=== PATIENT | male | born 1960 | race Caucasian/White ===

== ENCOUNTER 2016-05-25 09:45 | Inpatient (IN) | payer MEDICARE ==
[~2016-05-25] VITALS: Ht 190.5 cm; Wt 255.0 kg
[~2016-05-25 09:45] MED LIST: ACET-1757 PO; ALBU18HF INH; ALBU2.5V11 NEB; AMIO100T4 PO; AMIO200T42 PO; BISA10SU65 PR; CEFT1FRO2 IV; CEPH-367 PO; CEPH-376 PO; DOCU-30 PO; ENOX100S4 SQ; ENOX150D3 SQ; FENT1PAT77 TD; FURO-92 PO; FURO20TA3 IVPush; FURO80TA3 PO; HEPA IV; HYDR-3144 PO; HYDR-3240 PO; HYDR4CRE5 TP; HYDR4TAB16 PO; LISI-167 PO; LORA4VIA4 PO; MECL-85 PO; METH500T97 PO; METH750T2 PO; METO25TA35 PO; METO50TA4 PO; METO5TAB5 PO; MORP30TA3 PO; MORP30TA81 PO; MORP4VIA IVPush; NYST1POW2 TP; NYST60PO TP; ONDA4AMP IVPush; POLY17PO5 NG; POLY17PO5 PO; POTA20TA14 PO; POTA25TA3 PO; POTA25TA4 PO; RIVA15TA PO; SENN1TAB7 PO; SIMV20TA3 PO; SULF1TAB24 PO; TRAZ150T68 PO; TRAZ300T2 PO; WARF10TA6 PO-COUM; WARF5TAB7 PO-COUM
[2016-05-25] MEDS ORDERED: FUROSEMIDE 20 MG TABLET PO ONE (10:00)
[2016-05-25 10:44] LABS: HEMOGLOBIN 11.4 g/dL (13.7-18.0)
[2016-05-25 10:45] LABS: BLOOD UREA NITROGEN 27 mg/dL (7-18)
[2016-05-25 10:55] LABS: IS PT STATUS REG ER OR PRE ER? YES
[2016-05-25] MEDS ORDERED: RIVA20TA PO (10:59)
[2016-05-25] MEDS ORDERED: ZOLP10TA PO (10:59)
[2016-05-25] MEDS ORDERED: LABETALOL 5MG/ML, 20ML IV PRN (12:30)
[2016-05-25] MEDS ORDERED: FENTANYL 50 MCG PATCH TD SCH (12:30)
[2016-05-25 12:58] LABS: IS PT STATUS REG ER OR PRE ER? YES
[2016-05-25 13:28] VITALS: BP 119/68
[2016-05-25] MEDS: PLEASE ENTER WEIGHT MC SCH ×2 (13:30→21:30)
[2016-05-25] MEDS: HYDROcodone/APAP 5/325 TABLET PO PRN ×2 (16:53→23:03)
[2016-05-25] MEDS: FUROSEMIDE 40 MG/4 ML IV SCH (16:53)
[2016-05-25] MEDS: METOLAZONE 5 MG TABLET PO SCH (16:53)
[2016-05-25 18:56] LABS: IS PT STATUS REG ER OR PRE ER? NO
[2016-05-25 20:05] VITALS: BP 111/69
[2016-05-25] MEDS: FAMOTIDINE 20 MG/2 ML IV SCH (20:41)
[2016-05-25] MEDS: METOPROLOL SUCCINATE 50 MG TAB.ER.24H PO SCH (20:42)
[2016-05-25] MEDS: AMIODARONE 200 MG TABLET PO SCH (20:42)
[2016-05-25] MEDS: ZOLPIDEM 10MG TABLET PO SCH (23:03)
[2016-05-25] MEDS: TRAZODONE 100MG TABLET PO PRN (23:03)
[2016-05-26 05:22] VITALS: BP 115/69
[2016-05-26] MEDS: PLEASE ENTER WEIGHT MC SCH ×2 (05:30→11:21)
[2016-05-26 05:44] LABS: BLOOD UREA NITROGEN 19 mg/dL (7-18)
[2016-05-26 05:47] LABS: ASPARTATE AMINO TRANSFERASE 12 U/L (15-37); TOTAL IRON BINDING CAPACITY 335 mcg/dL (250-450)
[2016-05-26 07:27] VITALS: BP 118/74
[2016-05-26] MEDS: METOLAZONE 5 MG TABLET PO SCH (08:07)
[2016-05-26] MEDS: METOPROLOL SUCCINATE 50 MG TAB.ER.24H PO SCH ×2 (08:07→21:24)
[2016-05-26] MEDS: HYDROcodone/APAP 5/325 TABLET PO PRN ×3 (08:07→21:24)
[2016-05-26] MEDS: AMIODARONE 200 MG TABLET PO SCH ×2 (08:08→21:24)
[2016-05-26] MEDS: FUROSEMIDE 40 MG/4 ML IV SCH ×2 (08:08→17:11)
[2016-05-26] MEDS: FAMOTIDINE 20 MG/2 ML IV SCH ×2 (08:08→21:24)
[2016-05-26] MEDS ORDERED: RIVAROXABAN 20 MG TABLET PO SCH (09:00)
[2016-05-26 09:07] LABS: HEMOGLOBIN 10.7 g/dL (13.7-18.0)
[2016-05-26 12:50] VITALS: BP 111/64
[2016-05-26] MEDS: POLYETHYLENE GLYCOL 17 GM PACKET PO PRN (14:45)
[2016-05-26] MEDS: DOCUSATE 100 MG CAPSULE PO PRN (14:45)
[2016-05-26] MEDS: RIVAROXABAN 20 MG TABLET PO SCH (17:12)
[2016-05-26 19:35] VITALS: BP 115/63
[2016-05-26] MEDS: ZOLPIDEM 10MG TABLET PO SCH (21:24)
[2016-05-26] MEDS: TRAZODONE 100MG TABLET PO PRN (22:13)
[2016-05-27 03:58] VITALS: BP 135/74
[2016-05-27] MEDS: HYDROcodone/APAP 5/325 TABLET PO PRN ×4 (04:10→22:58)
[2016-05-27 06:04] LABS: BLOOD UREA NITROGEN 22 mg/dL (7-18)
[2016-05-27 07:50] VITALS: BP 116/69
[2016-05-27] MEDS: POLYETHYLENE GLYCOL 17 GM PACKET PO PRN (08:42)
[2016-05-27] MEDS: METOPROLOL SUCCINATE 50 MG TAB.ER.24H PO SCH ×2 (08:42→20:43)
[2016-05-27] MEDS: METOLAZONE 5 MG TABLET PO SCH (08:42)
[2016-05-27] MEDS: AMIODARONE 200 MG TABLET PO SCH ×2 (08:42→20:43)
[2016-05-27] MEDS: DOCUSATE 100 MG CAPSULE PO PRN (08:42)
[2016-05-27] MEDS: FUROSEMIDE 40 MG/4 ML IV SCH (08:43)
[2016-05-27] MEDS: FAMOTIDINE 20 MG/2 ML IV SCH (08:43)
[2016-05-27] MEDS: POTASSIUM CHLORIDE 20 MEQ TAB.ER.PRT PO SCH ×2 (10:37→14:58)
[2016-05-27 12:41] VITALS: BP 138/81
[2016-05-27] MEDS ORDERED: MORPHINE SULFATE 4 MG/ML, 1ML IVPush ONE (15:30)
[2016-05-27] MEDS: ONDANSETRON 2MG/ML, 2ML IVP PRN (16:03)
[2016-05-27] MEDS: RIVAROXABAN 20 MG TABLET PO SCH (16:51)
[2016-05-27] MEDS: FUROSEMIDE 40 MG TABLET PO SCH (16:51)
[2016-05-27 18:58] VITALS: BP 147/69
[2016-05-27] MEDS ORDERED: FENTANYL 50 MCG PATCH TD SCH (20:00)
[2016-05-27] MEDS ORDERED: FENTANYL REMOVE PATCH NOTE XX SCH (20:00)
[2016-05-27] MEDS: ZOLPIDEM 10MG TABLET PO SCH (20:42)
[2016-05-27] MEDS: TRAZODONE 100MG TABLET PO PRN (20:43)
[2016-05-27] MEDS: FAMOTIDINE 20 MG TABLET PO SCH (20:43)
[2016-05-28 04:24] VITALS: BP 117/71
[2016-05-28] MEDS: HYDROcodone/APAP 5/325 TABLET PO PRN ×4 (04:56→23:19)
[2016-05-28 06:10] LABS: HEMOGLOBIN 11.7 g/dL (13.7-18.0)
[2016-05-28 06:22] LABS: BLOOD UREA NITROGEN 23 mg/dL (7-18)
[2016-05-28] MEDS: FUROSEMIDE 40 MG TABLET PO SCH ×2 (09:42→17:28)
[2016-05-28] MEDS: AMIODARONE 200 MG TABLET PO SCH ×2 (09:43→21:19)
[2016-05-28] MEDS: METOPROLOL SUCCINATE 50 MG TAB.ER.24H PO SCH ×2 (09:43→21:18)
[2016-05-28] MEDS: FAMOTIDINE 20 MG TABLET PO SCH ×2 (09:44→21:18)
[2016-05-28] MEDS: METOLAZONE 5 MG TABLET PO SCH (09:45)
[2016-05-28] MEDS: FENTANYL 75 MCG PATCH TD SCH (13:06)
[2016-05-28 13:34] VITALS: BP 142/67
[2016-05-28] MEDS: MORPHINE SULFATE 4 MG/ML, 1ML IVPush PRN ×2 (13:43→23:09)
[2016-05-28] MEDS: RIVAROXABAN 20 MG TABLET PO SCH (17:28)
[2016-05-28 20:26] VITALS: BP 113/66
[2016-05-28] MEDS: POLYETHYLENE GLYCOL 17 GM PACKET PO PRN (21:18)
[2016-05-28] MEDS: ZOLPIDEM 10MG TABLET PO SCH (21:18)
[2016-05-28] MEDS: DOCUSATE 100 MG CAPSULE PO PRN (21:18)
[2016-05-28] MEDS: TRAZODONE 100MG TABLET PO PRN (21:41)
[2016-05-28] MEDS: ONDANSETRON ODT 4 MG PO PRN (23:18)
[2016-05-29 01:02] VITALS: BP 121/63
[2016-05-29] MEDS: HYDROcodone/APAP 5/325 TABLET PO PRN ×3 (07:38→20:44)
[2016-05-29] MEDS: FUROSEMIDE 40 MG TABLET PO SCH ×2 (07:39→18:01)
[2016-05-29 08:12] VITALS: BP 135/76
[2016-05-29] MEDS: FAMOTIDINE 20 MG TABLET PO SCH ×2 (10:04→20:44)
[2016-05-29] MEDS: METOLAZONE 5 MG TABLET PO SCH (10:04)
[2016-05-29] MEDS: METOPROLOL SUCCINATE 50 MG TAB.ER.24H PO SCH ×2 (10:04→20:44)
[2016-05-29] MEDS: AMIODARONE 200 MG TABLET PO SCH ×2 (10:05→20:44)
[2016-05-29] MEDS: MORPHINE SULFATE 4 MG/ML, 1ML IVPush PRN ×2 (11:23→21:50)
[2016-05-29] MEDS: DOCUSATE 100 MG CAPSULE PO PRN (12:37)
[2016-05-29] MEDS: ONDANSETRON ODT 4 MG PO PRN (12:37)
[2016-05-29 13:01] VITALS: BP 167/72
[2016-05-29] MEDS: RIVAROXABAN 20 MG TABLET PO SCH (18:02)
[2016-05-29] MEDS: POLYETHYLENE GLYCOL 17 GM PACKET PO PRN (20:43)
[2016-05-29 21:31] VITALS: BP 110/65
[2016-05-29] MEDS: TRAZODONE 100MG TABLET PO PRN (21:50)
[2016-05-29] MEDS: ZOLPIDEM 10MG TABLET PO SCH (21:50)
[2016-05-29] MEDS: ONDANSETRON 2MG/ML, 2ML IVP PRN (21:56)
[2016-05-30 01:22] VITALS: BP 115/70
[2016-05-30 05:03] LABS: HEMOGLOBIN 11.9 g/dL (13.7-18.0)
[2016-05-30 05:10] LABS: BLOOD UREA NITROGEN 26 mg/dL (7-18)
[2016-05-30 06:53] VITALS: BP 109/70
[2016-05-30] MEDS ORDERED: morphine SULFATE 10 MG/ML, 1ML ONE (08:58)
[2016-05-30] MEDS: ONDANSETRON 2MG/ML, 2ML IVP PRN ×2 (09:03→18:04)
[2016-05-30] MEDS: DOCUSATE 100 MG CAPSULE PO PRN (09:03)
[2016-05-30] MEDS: POLYETHYLENE GLYCOL 17 GM PACKET PO PRN (09:03)
[2016-05-30] MEDS: POTASSIUM CHLORIDE 20 MEQ TAB.ER.PRT PO SCH ×2 (09:04→13:25)
[2016-05-30] MEDS: MORPHINE SULFATE 4 MG/ML, 1ML IVPush PRN ×2 (09:04→18:04)
[2016-05-30] MEDS: FAMOTIDINE 20 MG TABLET PO SCH ×2 (09:05→21:17)
[2016-05-30] MEDS: METOLAZONE 5 MG TABLET PO SCH (09:05)
[2016-05-30] MEDS: METOPROLOL SUCCINATE 50 MG TAB.ER.24H PO SCH ×2 (09:05→21:17)
[2016-05-30] MEDS: AMIODARONE 200 MG TABLET PO SCH ×2 (09:05→21:17)
[2016-05-30] MEDS: HYDROcodone/APAP 5/325 TABLET PO PRN ×3 (09:58→22:56)
[2016-05-30 12:45] VITALS: BP 130/73
[2016-05-30 13:50] LABS: OCCBLD OBC PASS
[2016-05-30] MEDS: FUROSEMIDE 20 MG TABLET PO SCH (16:45)
[2016-05-30] MEDS: RIVAROXABAN 20 MG TABLET PO SCH ×2 (16:45→18:04)
[2016-05-30 19:22] VITALS: BP 124/69
[2016-05-30] MEDS: ZOLPIDEM 10MG TABLET PO SCH (22:56)
[2016-05-30] MEDS: TRAZODONE 100MG TABLET PO PRN (22:56)
[2016-05-31] MEDS: MORPHINE SULFATE 4 MG/ML, 1ML IVPush PRN ×3 (00:35→21:02)
[2016-05-31] MEDS: ONDANSETRON 2MG/ML, 2ML IVP PRN ×3 (00:35→21:02)
[2016-05-31 00:50] VITALS: BP 105/68
[2016-05-31] MEDS: HYDROcodone/APAP 5/325 TABLET PO PRN ×3 (05:07→18:08)
[2016-05-31 05:36] LABS: HEMOGLOBIN 11.9 g/dL (13.7-18.0)
[2016-05-31 05:47] LABS: BLOOD UREA NITROGEN 29 mg/dL (7-18)
[2016-05-31 06:44] VITALS: BP 130/77
[2016-05-31] MEDS: AMIODARONE 200 MG TABLET PO SCH ×2 (08:09→21:02)
[2016-05-31] MEDS: FUROSEMIDE 20 MG TABLET PO SCH ×2 (08:09→18:08)
[2016-05-31] MEDS: FAMOTIDINE 20 MG TABLET PO SCH ×2 (08:10→21:02)
[2016-05-31] MEDS: METOLAZONE 5 MG TABLET PO SCH (08:11)
[2016-05-31] MEDS: METOPROLOL SUCCINATE 50 MG TAB.ER.24H PO SCH ×2 (08:11→21:02)
[2016-05-31] MEDS: POLYETHYLENE GLYCOL 17 GM PACKET PO PRN (08:14)
[2016-05-31] MEDS: DOCUSATE 100 MG CAPSULE PO PRN (08:14)
[2016-05-31 09:27] LABS: TOTAL IRON BINDING CAPACITY 351 mcg/dL (250-450)
[2016-05-31] MEDS ORDERED: POTASSIUM CHLORIDE 20 MEQ TAB.ER.PRT PO ONE (09:30)
[2016-05-31 12:25] VITALS: BP 128/74
[2016-05-31] MEDS ORDERED: FENTANYL REMOVE PATCH NOTE XX SCH (13:00)
[2016-05-31] MEDS: FENTANYL 75 MCG PATCH TD SCH (14:34)
[2016-05-31] MEDS: RIVAROXABAN 20 MG TABLET PO SCH (18:08)
[2016-05-31 19:25] VITALS: BP 129/78
[2016-05-31] MEDS: ZOLPIDEM 10MG TABLET PO SCH (21:01)
[2016-05-31] MEDS: TRAZODONE 100MG TABLET PO PRN (22:06)
[2016-06-01] MEDS: HYDROcodone/APAP 5/325 TABLET PO PRN ×4 (00:11→18:33)
[2016-06-01 02:15] VITALS: BP 127/75
[2016-06-01 05:21] LABS: BLOOD UREA NITROGEN 30 mg/dL (7-18)
[2016-06-01] MEDS ORDERED: POTASSIUM CHLORIDE 20 MEQ TAB.ER.PRT PO ONE (07:00)
[2016-06-01 07:38] VITALS: BP 104/59
[2016-06-01] MEDS: FAMOTIDINE 20 MG TABLET PO SCH ×2 (09:08→20:53)
[2016-06-01] MEDS: DOCUSATE 100 MG CAPSULE PO PRN (09:08)
[2016-06-01] MEDS: AMIODARONE 200 MG TABLET PO SCH ×2 (09:08→20:52)
[2016-06-01] MEDS: FUROSEMIDE 20 MG TABLET PO SCH ×2 (09:09→17:10)
[2016-06-01] MEDS: METOLAZONE 5 MG TABLET PO SCH (09:09)
[2016-06-01] MEDS: METOPROLOL SUCCINATE 50 MG TAB.ER.24H PO SCH ×2 (09:09→20:53)
[2016-06-01] MEDS: POLYETHYLENE GLYCOL 17 GM PACKET PO PRN (09:10)
[2016-06-01] MEDS: MORPHINE SULFATE 4 MG/ML, 1ML IVPush PRN ×3 (10:57→23:16)
[2016-06-01] MEDS: ONDANSETRON 2MG/ML, 2ML IVP PRN ×3 (10:57→23:19)
[2016-06-01 12:36] VITALS: BP 127/70
[2016-06-01] MEDS: RIVAROXABAN 20 MG TABLET PO SCH (17:10)
[2016-06-01 19:41] VITALS: BP 133/73
[2016-06-01] MEDS: ZOLPIDEM 10MG TABLET PO SCH (20:52)
[2016-06-01] MEDS: TRAZODONE 100MG TABLET PO PRN (21:59)
[2016-06-02] MEDS: HYDROcodone/APAP 5/325 TABLET PO PRN ×3 (00:36→12:45)
[2016-06-02 01:47] VITALS: BP 120/74
[2016-06-02 07:48] VITALS: BP 117/65
[2016-06-02] MEDS: FAMOTIDINE 20 MG TABLET PO SCH (08:50)
[2016-06-02] MEDS: DOCUSATE 100 MG CAPSULE PO PRN (08:51)
[2016-06-02] MEDS: AMIODARONE 200 MG TABLET PO SCH (08:51)
[2016-06-02] MEDS: FUROSEMIDE 20 MG TABLET PO SCH (08:51)
[2016-06-02] MEDS: METOLAZONE 5 MG TABLET PO SCH (08:51)
[2016-06-02] MEDS: METOPROLOL SUCCINATE 50 MG TAB.ER.24H PO SCH (08:51)
[2016-06-02] MEDS ORDERED: POTASSIUM CHLORIDE 20 MEQ TAB.ER.PRT PO SCH (10:30)
[2016-06-02] MEDS: MORPHINE SULFATE 4 MG/ML, 1ML IVPush PRN (10:39)
[2016-06-02] MEDS: ONDANSETRON 2MG/ML, 2ML IVP PRN (10:39)
[2016-06-02 12:48] VITALS: BP 132/74
[2016-06-02] MEDS ORDERED: POTA20TA14 PO (15:41)
[2016-06-02] MEDS ORDERED: AMIO200T42 PO (15:41)
[2016-06-02] MEDS ORDERED: FURO20TA3 PO (15:41)
[2016-06-03] MEDS ORDERED: AMIODARONE 200 MG TABLET PO SCH (09:00)
== END 2016-06-02 16:30 | disposition home or self-care (01) | DRG 291 ==
LOC: ED 10:43 → EDIP 11:36 → 4WST 13:08
PROVIDERS: ADMIT Internal Medicine; ATTEND Internal Medicine
DX: I50.31 Acute diastolic (congestive) heart failure (principal); J96.21 Acute and chronic respiratory failure with hypoxia; J96.22 Acute and chronic respiratory failure with hypercapnia; D68.69 Other thrombophilia; E66.2 Morbid (severe) obesity with alveolar hypoventilation; Z68.45 Body mass index [BMI] 70 or greater, adult; G89.29 Other chronic pain; I48.2 Chronic atrial fibrillation; D50.9 Iron deficiency anemia, unspecified; I27.2 Other secondary pulmonary hypertension; I27.81 Cor pulmonale (chronic); I87.8 Other specified disorders of veins; J44.9 Chronic obstructive pulmonary disease, unspecified; Z79.01 Long term (current) use of anticoagulants; Z86.711 Personal history of pulmonary embolism; Z86.718 Personal history of other venous thrombosis and embolism; Z87.440 Personal history of urinary (tract) infections; Z87.891 Personal history of nicotine dependence; Z98.84 Bariatric surgery status; Z99.81 Dependence on supplemental oxygen; Z90.49 Acquired absence of other specified parts of digestive tract; Z88.8 Allergy status to other drugs, medicaments and biological substances; Z88.5 Allergy status to narcotic agent
CPT/HCPCS: 36415; 71010; 80048; 80053; 81001; 82040; 82272; 82728; 82962; 83540; 83550; 83735; 83880; 84439; 84443; 84484; 85025; 85379; 87040; 87086; 87252; 93005; 93922; 99285; C8929; J1940; J2405; Q0162; S0028

== ENCOUNTER 2016-07-05 10:18 | Emergency (ER) | payer MEDICARE ==
[~2016-07-05] VITALS: Ht 193 cm; Wt 251.5 kg
[~2016-07-05 10:18] MED LIST changes: +FURO20TA3 PO; +RIVA20TA PO; +ZOLP10TA PO
[2016-07-05] MEDS ORDERED: POLY17PO5 PO (10:50)
[2016-07-05] MEDS ORDERED: ZOLP-413 PO (10:50)
[2016-07-05] MEDS ORDERED: DOCU100C8 PO (10:51)
[2016-07-05] MEDS ORDERED: SODIUM CHLORIDE FLUSH 10ML SYR IVF ONE (11:30)
[2016-07-05] MEDS ORDERED: FUROSEMIDE 40 MG/4 ML IVPush ONE (11:30)
[2016-07-05] MEDS ORDERED: MORPHINE SULFATE 4 MG/ML, 1ML ONE (12:14)
[2016-07-05 12:20] LABS: ASPARTATE AMINO TRANSFERASE 7 U/L (15-37); BLOOD UREA NITROGEN 19 mg/dL (7-18)
[2016-07-05 12:25] LABS: IS PT STATUS REG ER OR PRE ER? YES
[2016-07-05] MEDS ORDERED: ONDANSETRON 2MG/ML, 2ML ONE (12:27)
[2016-07-05] MEDS ORDERED: MORPHINE SULFATE 4 MG/ML, 1ML IVPush PRN (12:30)
[2016-07-05] MEDS ORDERED: ONDANSETRON 2MG/ML, 2ML IVPush ONE (12:30)
[2016-07-05] MEDS ORDERED: FUROSEMIDE 40 MG/4 ML ONE (12:57)
[2016-07-05 13:01] VITALS: BP 126/98
== END 2016-07-05 16:52 | disposition home or self-care (01) ==
LOC: ED 11:04
DX: R06.00 Dyspnea, unspecified (principal); G89.29 Other chronic pain; M25.562 Pain in left knee; M25.561 Pain in right knee; E66.01 Morbid (severe) obesity due to excess calories; Z99.81 Dependence on supplemental oxygen; Z68.41 Body mass index [BMI] 40.0-44.9, adult
CPT/HCPCS: 36415; 71010; 80053; 83880; 84484; 85025; 85610; 85730; 93005; 96374; 96375; 99285; J1940; J2405

== ENCOUNTER 2016-08-03 13:38 | Emergency (ER) | payer MEDICARE ==
[~2016-08-03] VITALS: Ht 193 cm; Wt 295.0 kg
[~2016-08-03 13:38] MED LIST changes: +DOCU100C8 PO; +ZOLP-413 PO
[2016-08-03] MEDS ORDERED: SODIUM CHLORIDE FLUSH 10ML SYR IVF ONE (14:00)
[2016-08-03] MEDS ORDERED: ONDANSETRON 2MG/ML, 2ML IVPush ONE (14:00)
[2016-08-03] MEDS ORDERED: PLEASE ENTER HEIGHT AND WEIGHT MC SCH (14:30)
[2016-08-03] MEDS ORDERED: ONDANSETRON 2MG/ML, 2ML ONE (14:36)
[2016-08-03] MEDS ORDERED: HYDROmorphone 1 MG/ML, 1ML ONE ×2 (14:36→15:32)
[2016-08-03] MEDS: HYDROmorphone 1 MG/ML, 1ML IVPush PRN ×2 (14:42→15:35)
[2016-08-03 14:54] LABS: BLOOD UREA NITROGEN 21 mg/dL (7-18)
[2016-08-03] MEDS ORDERED: NALOXONE 0.4 MG/ML, 1ML ONE (16:10)
[2016-08-03] MEDS ORDERED: NALOXONE 0.4 MG/ML, 1ML IVPush ONE (16:30)
[2016-08-03 17:28] VITALS: BP 132/87
== END 2016-08-03 18:03 | disposition home or self-care (01) ==
LOC: ED 14:35
DX: S33.5XXA Sprain of ligaments of lumbar spine, initial encounter (principal); M25.562 Pain in left knee; M25.561 Pain in right knee; M25.572 Pain in left ankle and joints of left foot; M25.571 Pain in right ankle and joints of right foot; E66.01 Morbid (severe) obesity due to excess calories; J44.9 Chronic obstructive pulmonary disease, unspecified; Z87.891 Personal history of nicotine dependence; W01.0XXA Fall on same level from slipping, tripping and stumbling without subsequent striking against object, initial encounter; Y93.89 Activity, other specified; Y99.8 Other external cause status; Y92.002 Bathroom of unspecified non-institutional (private) residence as the place of occurrence of the external cause
CPT/HCPCS: 36415; 73560; 73600; 80048; 80307; 82040; 85025; 96374; 96375; 96376; 99285; J1170; J2310; J2405

== ENCOUNTER 2016-12-10 10:17 | Inpatient (IN) | payer MEDICARE ==
[~2016-12-10] VITALS: Ht 193 cm; Wt 293.9 kg
[~2016-12-10 10:17] MED LIST changes: +DOCU-131 PO; -DOCU-30 PO; +DOCU100C33 PO; -DOCU100C8 PO; -ENOX150D3 SQ; +ENOX150S4 SQ; -HYDR-3144 PO; +HYDR-3245 PO; -HYDR4TAB16 PO; +HYDR4TAB48 PO; +TRAZ150T62 PO; -TRAZ150T68 PO
[2016-12-10] MEDS ORDERED: ENALAPRILAT 1.25 MG/ML, 2ML IVPush PRN (14:30)
[2016-12-10] MEDS: PLEASE ENTER HEIGHT AND WEIGHT MC SCH ×2 (15:00→23:00)
[2016-12-10] MEDS ORDERED: ZOLPIDEM 5MG TABLET PO PRN (15:00)
[2016-12-10] MEDS ORDERED: FENTANYL 75 MCG PATCH TD SCH (15:00)
[2016-12-10] MEDS ORDERED: HYDROcodone/APAP 5/325 TABLET ONE ×2 (15:44→16:23)
[2016-12-10 15:49] LABS: IS PT STATUS REG ER OR PRE ER? NO
[2016-12-10] MEDS: HYDROcodone/APAP 5/325 TABLET PO PRN ×3 (15:52→21:48)
[2016-12-10 18:08] VITALS: BP 120/68
[2016-12-10 19:06] VITALS: BP 144/67
[2016-12-10 21:44] VITALS: BP 105/65
[2016-12-10] MEDS: FUROSEMIDE 20 MG TABLET PO SCH (21:47)
[2016-12-10] MEDS: METOPROLOL SUCCINATE 50 MG TAB.ER.24H PO SCH (21:48)
[2016-12-10] MEDS: TRAZODONE 150MG TABLET PO SCH (21:48)
[2016-12-10] MEDS: FENTANYL 75 MCG PATCH TD SCH (23:19)
[2016-12-11] MEDS: HYDROcodone/APAP 5/325 TABLET PO PRN ×4 (02:25→17:55)
[2016-12-11 02:30] VITALS: BP 124/68
[2016-12-11 05:58] LABS: HEMATOCRIT 31.1 % (39.2-51.8); HEMOGLOBIN 9.7 g/dL (13.7-18.0)
[2016-12-11 06:09] LABS: BLOOD UREA NITROGEN 19 mg/dL (7-18)
[2016-12-11] MEDS: PLEASE ENTER HEIGHT AND WEIGHT MC SCH (07:00)
[2016-12-11 07:28] VITALS: BP 119/71
[2016-12-11] MEDS: FUROSEMIDE 20 MG TABLET PO SCH ×2 (08:32→17:55)
[2016-12-11] MEDS: RIVAROXABAN 20 MG TABLET PO SCH (08:32)
[2016-12-11] MEDS: DOCUSATE 100 MG CAPSULE PO SCH (08:32)
[2016-12-11] MEDS: METOPROLOL SUCCINATE 50 MG TAB.ER.24H PO SCH (08:33)
[2016-12-11] MEDS: METOLAZONE 5 MG TABLET PO SCH (08:33)
[2016-12-11] MEDS: AMIODARONE 200 MG TABLET PO SCH (08:33)
[2016-12-11] MEDS ORDERED: SENNA/DOCUSATE TABLET PO PRN (09:00)
[2016-12-11] MEDS ORDERED: SENNA/DOCUSATE TABLET PO SCH (09:00)
[2016-12-11 13:17] VITALS: BP 111/68
[2016-12-11] MEDS: ONDANSETRON 2MG/ML, 2ML IVPush PRN (14:44)
[2016-12-11] MEDS: POLYETHYLENE GLYCOL 17 GM PACKET PO SCH (14:44)
[2016-12-11 19:10] VITALS: BP 129/73
[2016-12-12 02:35] VITALS: BP 159/79
[2016-12-12] MEDS: METOPROLOL SUCCINATE 50 MG TAB.ER.24H PO SCH ×3 (02:37→20:31)
[2016-12-12] MEDS: HYDROcodone/APAP 5/325 TABLET PO PRN ×4 (02:37→22:00)
[2016-12-12] MEDS: TRAZODONE 150MG TABLET PO SCH ×2 (02:37→22:00)
[2016-12-12 06:07] LABS: HEMATOCRIT 34.7 % (39.2-51.8); HEMOGLOBIN 10.6 g/dL (13.7-18.0); WHITE BLOOD COUNT 8.7 x10^3/uL (3.4-10)
[2016-12-12 06:49] LABS: BLOOD UREA NITROGEN 16 mg/dL (7-18)
[2016-12-12 07:22] VITALS: BP 127/79
[2016-12-12] MEDS: FUROSEMIDE 20 MG TABLET PO SCH ×2 (09:32→17:51)
[2016-12-12] MEDS: METOLAZONE 5 MG TABLET PO SCH (09:33)
[2016-12-12] MEDS: RIVAROXABAN 20 MG TABLET PO SCH (09:33)
[2016-12-12] MEDS: AMIODARONE 200 MG TABLET PO SCH (09:33)
[2016-12-12] MEDS: POLYETHYLENE GLYCOL 17 GM PACKET PO SCH (09:34)
[2016-12-12] MEDS: DOCUSATE 100 MG CAPSULE PO SCH (09:34)
[2016-12-12 15:10] VITALS: BP 120/68
[2016-12-12 19:06] VITALS: BP 111/64
[2016-12-12] MEDS: ONDANSETRON 2MG/ML, 2ML IVPush PRN (20:30)
[2016-12-13 00:48] VITALS: BP 131/71
[2016-12-13] MEDS: HYDROcodone/APAP 5/325 TABLET PO PRN ×3 (05:35→17:59)
[2016-12-13] MEDS: FUROSEMIDE 20 MG TABLET PO SCH ×2 (07:30→17:00)
[2016-12-13 08:15] VITALS: BP 107/65
[2016-12-13] MEDS: POLYETHYLENE GLYCOL 17 GM PACKET PO SCH (08:33)
[2016-12-13] MEDS: METOLAZONE 5 MG TABLET PO SCH (08:34)
[2016-12-13] MEDS: AMIODARONE 200 MG TABLET PO SCH (08:34)
[2016-12-13] MEDS: DOCUSATE 100 MG CAPSULE PO SCH (08:34)
[2016-12-13] MEDS: METOPROLOL SUCCINATE 50 MG TAB.ER.24H PO SCH ×2 (08:34→21:13)
[2016-12-13] MEDS: RIVAROXABAN 20 MG TABLET PO SCH (08:34)
[2016-12-13] MEDS: ONDANSETRON 2MG/ML, 2ML IVPush PRN (10:46)
[2016-12-13 13:51] VITALS: BP 119/71
[2016-12-13 19:19] VITALS: BP 104/63
[2016-12-13] MEDS: TRAZODONE 150MG TABLET PO SCH (21:13)
[2016-12-13] MEDS: FENTANYL 75 MCG PATCH TD SCH (23:26)
[2016-12-14] MEDS: HYDROcodone/APAP 5/325 TABLET PO PRN ×5 (01:10→21:16)
[2016-12-14 01:25] VITALS: BP 117/66
[2016-12-14 08:49] VITALS: BP 112/53
[2016-12-14] MEDS: FUROSEMIDE 20 MG TABLET PO SCH ×2 (08:51→17:46)
[2016-12-14] MEDS: AMIODARONE 200 MG TABLET PO SCH (08:52)
[2016-12-14] MEDS: DOCUSATE 100 MG CAPSULE PO SCH (08:52)
[2016-12-14] MEDS: POLYETHYLENE GLYCOL 17 GM PACKET PO SCH (08:52)
[2016-12-14] MEDS: METOPROLOL SUCCINATE 50 MG TAB.ER.24H PO SCH ×2 (08:52→21:16)
[2016-12-14] MEDS: METOLAZONE 5 MG TABLET PO SCH (08:52)
[2016-12-14] MEDS: RIVAROXABAN 20 MG TABLET PO SCH (08:52)
[2016-12-14] MEDS: ONDANSETRON 2MG/ML, 2ML IVPush PRN (10:29)
[2016-12-14 14:22] VITALS: BP 102/62
[2016-12-14 20:03] VITALS: BP 108/65
[2016-12-14] MEDS: TRAZODONE 150MG TABLET PO SCH (21:16)
[2016-12-15 03:50] VITALS: BP 119/70
[2016-12-15] MEDS: HYDROcodone/APAP 5/325 TABLET PO PRN ×3 (03:56→21:23)
[2016-12-15 08:40] VITALS: BP 113/67
[2016-12-15] MEDS: ONDANSETRON 2MG/ML, 2ML IVPush PRN (09:35)
[2016-12-15] MEDS: FUROSEMIDE 20 MG TABLET PO SCH ×2 (09:42→17:53)
[2016-12-15] MEDS: METOPROLOL SUCCINATE 50 MG TAB.ER.24H PO SCH ×2 (09:42→21:20)
[2016-12-15] MEDS: METOLAZONE 5 MG TABLET PO SCH (09:42)
[2016-12-15] MEDS: RIVAROXABAN 20 MG TABLET PO SCH (09:42)
[2016-12-15] MEDS: DOCUSATE 100 MG CAPSULE PO SCH (09:42)
[2016-12-15] MEDS: AMIODARONE 200 MG TABLET PO SCH (09:42)
[2016-12-15] MEDS: POLYETHYLENE GLYCOL 17 GM PACKET PO SCH (09:43)
[2016-12-15] MEDS ORDERED: FLU VACC QS2017-18 (36MOS+) UP/PF 0.5 ML IM-VACC ONE (12:00)
[2016-12-15 14:19] VITALS: BP 107/62
[2016-12-15 18:57] VITALS: BP 104/65
[2016-12-15] MEDS: TRAZODONE 150MG TABLET PO SCH (21:20)
[2016-12-16 01:45] VITALS: BP 104/66
[2016-12-16 04:58] LABS: OCCBLD OBC PASS
[2016-12-16] MEDS: FERROUS SULFATE 325 MG TABLET PO SCH ×2 (08:57→17:27)
[2016-12-16] MEDS: FUROSEMIDE 20 MG TABLET PO SCH ×2 (08:58→17:27)
[2016-12-16] MEDS: RIVAROXABAN 20 MG TABLET PO SCH (08:58)
[2016-12-16] MEDS: DOCUSATE 100 MG CAPSULE PO SCH (08:59)
[2016-12-16] MEDS: METOPROLOL SUCCINATE 50 MG TAB.ER.24H PO SCH ×2 (08:59→21:12)
[2016-12-16] MEDS: AMIODARONE 200 MG TABLET PO SCH (09:00)
[2016-12-16] MEDS: METOLAZONE 5 MG TABLET PO SCH (09:00)
[2016-12-16] MEDS: HYDROcodone/APAP 5/325 TABLET PO PRN ×4 (09:01→21:12)
[2016-12-16] MEDS: POLYETHYLENE GLYCOL 17 GM PACKET PO SCH ×2 (09:01→21:00)
[2016-12-16] MEDS: ONDANSETRON 2MG/ML, 2ML IVPush PRN (09:02)
[2016-12-16 09:15] VITALS: BP 123/71
[2016-12-16 12:40] VITALS: BP 109/65
[2016-12-16 19:26] VITALS: BP 109/64
[2016-12-16] MEDS: TRAZODONE 150MG TABLET PO SCH (21:12)
[2016-12-16] MEDS: FENTANYL 75 MCG PATCH TD SCH (23:04)
[2016-12-17 02:15] VITALS: BP 112/72
[2016-12-17 08:54] VITALS: BP 111/69
[2016-12-17] MEDS: FERROUS SULFATE 325 MG TABLET PO SCH ×2 (08:58→17:00)
[2016-12-17] MEDS: DOCUSATE 100 MG CAPSULE PO SCH (08:58)
[2016-12-17] MEDS: POLYETHYLENE GLYCOL 17 GM PACKET PO SCH ×3 (08:58→21:09)
[2016-12-17] MEDS: FUROSEMIDE 20 MG TABLET PO SCH ×2 (08:59→17:00)
[2016-12-17] MEDS: METOLAZONE 5 MG TABLET PO SCH (08:59)
[2016-12-17] MEDS: RIVAROXABAN 20 MG TABLET PO SCH (08:59)
[2016-12-17] MEDS: AMIODARONE 200 MG TABLET PO SCH (08:59)
[2016-12-17] MEDS: METOPROLOL SUCCINATE 50 MG TAB.ER.24H PO SCH ×2 (09:00→21:09)
[2016-12-17] MEDS: HYDROcodone/APAP 5/325 TABLET PO PRN ×3 (09:06→21:09)
[2016-12-17 13:10] VITALS: BP 100/63
[2016-12-17] MEDS: ONDANSETRON 2MG/ML, 2ML IVPush PRN (14:46)
[2016-12-17 19:50] VITALS: BP 125/70
[2016-12-17] MEDS: TRAZODONE 150MG TABLET PO SCH (21:09)
[2016-12-18 01:58] VITALS: BP 125/74
[2016-12-18] MEDS: ONDANSETRON 2MG/ML, 2ML IVPush PRN (05:11)
[2016-12-18] MEDS: HYDROcodone/APAP 5/325 TABLET PO PRN ×2 (05:11→15:15)
[2016-12-18] MEDS: DOCUSATE 100 MG CAPSULE PO SCH (08:01)
[2016-12-18] MEDS: FERROUS SULFATE 325 MG TABLET PO SCH (08:01)
[2016-12-18] MEDS: FUROSEMIDE 20 MG TABLET PO SCH (08:01)
[2016-12-18] MEDS: METOLAZONE 5 MG TABLET PO SCH (08:02)
[2016-12-18] MEDS: AMIODARONE 200 MG TABLET PO SCH (08:02)
[2016-12-18] MEDS: METOPROLOL SUCCINATE 50 MG TAB.ER.24H PO SCH (08:02)
[2016-12-18] MEDS: POLYETHYLENE GLYCOL 17 GM PACKET PO SCH (08:02)
[2016-12-18] MEDS: RIVAROXABAN 20 MG TABLET PO SCH (08:02)
[2016-12-18 09:47] VITALS: BP 100/72
[2016-12-18] MEDS ORDERED: FERR-36 PO (12:36)
[2016-12-18] MEDS ORDERED: HYDR-3307 PO (13:35)
== END 2016-12-18 16:43 | disposition home or self-care (01) | DRG 312 ==
LOC: 5SO 12:50
PROVIDERS: ADMIT Family Medicine; ATTEND Family Medicine
DX: R55 Syncope and collapse (principal); J96.11 Chronic respiratory failure with hypoxia; E66.2 Morbid (severe) obesity with alveolar hypoventilation; F11.20 Opioid dependence, uncomplicated; I50.9 Heart failure, unspecified; I11.0 Hypertensive heart disease with heart failure; I48.91 Unspecified atrial fibrillation; D50.9 Iron deficiency anemia, unspecified; F12.20 Cannabis dependence, uncomplicated; J96.12 Chronic respiratory failure with hypercapnia; Z68.45 Body mass index [BMI] 70 or greater, adult; L97.929 Non-pressure chronic ulcer of unspecified part of left lower leg with unspecified severity; L97.919 Non-pressure chronic ulcer of unspecified part of right lower leg with unspecified severity; R39.198 Other difficulties with micturition; G89.29 Other chronic pain; I87.8 Other specified disorders of veins; M54.9 Dorsalgia, unspecified; H16.423 Pannus (corneal), bilateral; M25.569 Pain in unspecified knee; R07.89 Other chest pain; J44.9 Chronic obstructive pulmonary disease, unspecified; Z79.01 Long term (current) use of anticoagulants; Z80.3 Family history of malignant neoplasm of breast; Z86.711 Personal history of pulmonary embolism; Z87.891 Personal history of nicotine dependence; Z91.14 Patient's other noncompliance with medication regimen; Z98.84 Bariatric surgery status; Z99.81 Dependence on supplemental oxygen; Z83.3 Family history of diabetes mellitus
CPT/HCPCS: 36415; 80048; 82272; 84484; 85025; 90686; 93005; J2405